=== PATIENT | female | born 1960 | race Caucasian/White ===

== ENCOUNTER 2019-05-26 20:06 | Inpatient (IN) ==
[2019-05-26] MEDS ORDERED: MOTRIN PO ONE (20:30)
--- NOTE | 2019-05-26 20:40 | PROVIDER DOCUMENTATION ---
HPI-Fever - General Chief Complaint: Fever Stated Complaint: B/P 246/149 HR 119 Time Seen by Provider: 05/26/19 20:34 Source: patient Allergies/Adverse Reactions: Patient Allergies Allergy/AdvReac Type Severity Reaction Status Date / Time clindamycin Allergy Unknown Verified 05/26/19 20:29 - History of Present Illness-Fever Nature of Presenting Problem: 58 YOF WITH PMH OF BIPOLAR, SCHIZO-AFFECTIVE, HTN WAS BROUGHT TO THE ER FOR INCREASED BP AT HOME. SHE IS A POOR HISTORIAN BUT WAS ABLE TO REPORT VOMITING X 2 TODAY BUT DENIES ALL PAIN. MOTHER REPORTS SHE HAS FREQUENT UTI'S. Fever Severity/Quality: reports: greater than 100.5 F Onset/Duration: reports: just prior to arrival Timing: reports: still present Severity: reports: moderate Context: reports: none Recent Illness?: reports: none Cognitive Baseline: alert but disoriented (BASELINE PER FAMILY) Modifying Factors: improves with: nothing Associated Symptoms: reports: denies symptoms Similar Symptoms Previously?: No Recently seen or treated by another doctor?: No - Glascow Coma Score Best Eye Response ([place]): (4) open spontaneously Best Verbal Response ([place]): (5) oriented Best Motor Response ([place]): (6) obeys commands Review of Systems - Adult - REVIEW OF SYSTEMS - ADULT Constitutional: reports: fever. denies: no symptoms reported, see HPI, chills, fatique, night sweats, weight gain, weight loss, other Eyes: reports: no symptoms reported. denies: see HPI, discharge, dry eyes, decreased vision, blurred vision, double vision, eye pain, redness, other Ears, Nose, Mouth & Throat: reports: no symptoms reported. denies: see HPI, ear discharge, ear pain, hearing loss, tinnitus, epistaxis, sinus problem, nose pain, loose teeth, mouth/dental pain, mouth swelling, hoarseness, throat pain, throat swelling, other Cardiovascular: reports: no symptoms reported. denies: see HPI, chest pain, edema, heart murmur, irregular heart rate, orthopnea, palpitations, poor circu lation, PND, syncope, other Respiratory: reports: no symptoms reported. denies: see HPI, chronic cough, cough, dyspnea on exertion, excessive sputum production, hemoptysis, pleurisy, shortness of breath, wheezing, other Gastrointestinal: reports: nausea, vomiting. denies: no symptoms reported, see HPI, abdominal pain, hematemesis, constipation, diarrhea, difficulty swallowing, frequent heartburn, poor appetite, rectal bleeding, other Genitourinary: reports: no symptoms reported. denies: see HPI, dysuria, discharge, frequency, flank pain, frequent UTI's, hematuria, hesitency, incontinence, urinary retention, urgency, other Musculoskeletal: reports: no symptoms reported. denies: see HPI, bone pain, back pain, frequent leg cramps, joint pain, joint swelling, muscle aches, muscle weakness, neck pain, other Integumentary: reports: no symptoms reported. denies: see HPI, hives, hair loss, itching, mole changes, nail changes, rash, skin sores/ulcer, skin thickening, other Neurological: reports: no symptoms reported. denies: see HPI, ataxia, dizziness/vertigo, headache/migraines, loss of balance, numbness, paresthesia, seizure, slurred speech, syncope, tremors, other Psychiatric: reports: no symptoms reported. denies: see HPI, anxiety, anti- depressant use, alcohol/drug dependence, depression, emotional problems, insomnia, panic attacks, suicidal thoughts, other Endocrine: reports: no symptoms reported. denies: see HPI, change in skin pigment, excessive sweating, goiter, cold intolerance, heat intolerance, increased hunger, increased thirst, polyuria, other Hematologic/Lymphatic: reports: no symptoms reported. denies: see HPI, blood clots, easy bruising, low blood count, lymphedema, prolonged bleeding, swollen lymph nodes, transfusions, other Allergic/Immunologic: reports: no symptoms reported. denies: see HPI, allergic reactions, allergic rhinitis, asthma, eczema, food allergy, frequent infections, hay fever, hives, positive PPD, urticaria, other Past History - Adult - PAST MEDICAL HISTORY-ADULT Review of Records: reports: Nursing Assessment Review, Social history reviewed & non-contributory. Physical Exam-General - PHYSICAL EXAM-ADULT Initial Vital Signs Reviewed: Yes - CONSTITUTIONAL General Appearance: appears well, alert, no apparent distress - EYES Eyes: PERRL/EOMI - HEAD, EARS, NOSE, MOUTH & THROAT HENMT: normocephalic/atraumatic, moist mucous membranes, normal ENT inspection - NECK Neck: non-tender, full range of motion, supple - RESPIRATORY Respiratory: chest non-tender, lungs clear, normal breath sounds - CARDIOVASCULAR Cardiovascular: normal peripheral pulses, tachycardia - GASTROINTESTINAL (ABDOMEN) Abdominal Exam: normal bowel sounds, non tender, soft - LYMPHATIC Lymphatic: no adenopathy, axilla node tender - MUSCULOSKELETAL Back Exam: normal inspection, no CVA tenderness, no vertebral tenderness Extremity: normal range of motion, non-tender, normal gait, normal inspection - SKIN Integumentary: normal color, normal turgor, warm/dry - NEUROLOGIC Neurologic: grossly normal - PSYCHIATRIC Psych/Mental Status: normal mood/affect, oriented x 3 Progress - PLAN OF CARE/RESULTS Progress/Plan/Lab Results: Vital Signs - 8 hr 05/26/19 20:20 05/26/19 21:39 Temperature 101.9 F H 98.8 F Pulse Rate 101 H 88 Respiratory Rate 18 23 Blood Pressure 149/94 154/96 O2 Sat by Pulse Oximetry 92 L 96 Laboratory Results - last 24 hr 05/26/19 05/26/19 05/26/19 20:45 20:45 20:45 WBC 16.54 H RBC 5.16 Hgb 13.7 Hct 41.7 MCV 80.8 L MCH 26.6 L MCHC 32.9 L RDW Std Deviation 13.8 Plt Count 290 MPV 9.7 Immature Gran % (Auto) 0.2 Neut % (Auto) 87.3 H Lymph % (Auto) 7.6 L [place] % (Auto) 4.7 Eos % (Auto) 0.1 Baso % (Auto) 0.1 Immature Gran # (Auto) 0.04 Neut # (Auto) 14.43 H Lymph # (Auto) 1.26 [place] # (Auto) 0.78 H Eos # (Auto) 0.01 Baso # (Auto) 0.02 Segmented Neutrophils 83 H Band Neutrophils 8 H Lymphocytes 7 L Monocytes 2 Large Platelets 1+ Stomatocytes OCCASIONAL PT 13.8 INR 1.01 PTT (Actin FS) 25.4 Sodium 132 L Potassium 4.1 Chloride 96 L Carbon Dioxide 23 L Anion Gap 13 BUN 13 Creatinine 0.8 Estimated GFR/1.73 m2 > 60 BUN/Creatinine Ratio 16 Glucose 159 H Calculated Osmolality 268 Calcium 9.6 Magnesium 1.4 L Total Bilirubin 0.90 AST 25 ALT 34 Alkaline Phosphatase 122 H Creatine Kinase 38 Troponin T Total Protein 7.7 Albumin 4.7 Globulin 3.0 Albumin/Globulin Ratio 2.0 Plasma Lactate Urine Source Urine Color Urine Clarity Urine pH Ur Specific [place] Urine Protein Urine Ketones Urine Blood Urine Nitrite Urine Bilirubin Urine Urobilinogen Urine WBC Urine Glucose Influenza A (Rapid) Influenza B (Rapid) 05/26/19 05/26/19 05/26/19 20:45 20:45 20:48 WBC RBC Hgb Hct MCV MCH MCHC RDW Std Deviation Plt Count MPV Immature Gran % (Auto) Neut % (Auto) Lymph % (Auto) [place] % (Auto) Eos % (Auto) Baso % (Auto) Immature Gran # (Auto) Neut # (Auto) Lymph # (Auto) [place] # (Auto) Eos # (Auto) Baso # (Auto) Segmented Neutrophils Band Neutrophils Lymphocytes Monocytes Large Platelets Stomatocytes PT INR PTT (Actin FS) Sodium Potassium Chloride Carbon Dioxide Anion Gap BUN Creatinine Estimated GFR/1.73 m2 BUN/Creatinine Ratio Glucose Calculated Osmolality Calcium Magnesium Total Bilirubin AST ALT Alkaline Phosphatase Creatine Kinase Troponin T < 0.010 Total Protein Albumin Globulin Albumin/Globulin Ratio Plasma Lactate 1.4 Urine Source Urine Color Urine Clarity Urine pH Ur Specific [place] Urine Protein Urine Ketones Urine Blood Urine Nitrite Urine Bilirubin Urine Urobilinogen Urine WBC Urine Glucose Influenza A (Rapid) NEGATIVE Influenza B (Rapid) NEGATIVE 05/26/19 21:50 WBC RBC Hgb Hct MCV MCH MCHC RDW Std Deviation Plt Count MPV Immature Gran % (Auto) Neut % (Auto) Lymph % (Auto) [place] % (Auto) Eos % (Auto) Baso % (Auto) Immature Gran # (Auto) Neut # (Auto) Lymph # (Auto) [place] # (Auto) Eos # (Auto) Baso # (Auto) Segmented Neutrophils Band Neutrophils Lymphocytes Monocytes Large Platelets Stomatocytes PT INR PTT (Actin FS) Sodium Potassium Chloride Carbon Dioxide Anion Gap BUN Creatinine Estimated GFR/1.73 m2 BUN/Creatinine Ratio Glucose Calculated Osmolality Calcium Magnesium Total Bilirubin AST ALT Alkaline Phosphatase Creatine Kinase Troponin T Total Protein Albumin Globulin Albumin/Globulin Ratio Plasma Lactate Urine Source CLEAN CATCH Urine Color DARK YELLOW Urine Clarity SLIGHTLY CLOUDY A Urine pH 6.5 Ur Specific [place] 1.020 Urine Protein 1+(30 mg/dL) A Urine Ketones 1+(Small) A Urine Blood 3+ A Urine Nitrite NEGATIVE Urine Bilirubin 2+ A Urine Urobilinogen 1 Urine WBC 2+ A Urine Glucose TRACE(50 mg/dL) A Influenza A (Rapid) Influenza B (Rapid) Orders Category Date Time Status Cardiac Monitoring DIRECTED Care 05/26/19 20:34 Active IV Insertion ORDERED Care 05/26/19 20:34 Completed Notify MD of + Sepsis Screen NOW Care 05/26/19 20:34 Active Notify Physician As Ordered Care 05/26/19 20:34 Active CHEST-1 VIEW [RAD] Stat Exams 05/26/19 20:34 Completed cxr [CHEST-2 VIEWS] [RAD] Stat Exams 05/26/19 22:04 Taken BLOOD CULTURE [BLDCUL] Stat Lab 05/26/19 20:52 Results CBC WITH DIFF [HEME] Stat Lab 05/26/19 20:45 Completed CK PROFILE [SP CHEM] Stat Lab 05/26/19 20:45 Completed COMPREHENSIVE METABOLIC PANEL [CHEM] Stat Lab 05/26/19 20:45 Completed Flu [INFLUENZA SCREEN PL] Stat Lab 05/26/19 20:48 Completed LACTATE, PLASMA [CHEM] Lab 05/26/19 23:45 Uncollected LACTATE, PLASMA [CHEM] Lab 05/27/19 02:45 Uncollected LACTATE, PLASMA [CHEM] Q3H Lab 05/26/19 20:45 Completed MAGNESIUM [CHEM] Stat Lab 05/26/19 20:45 Completed PROTIME WITH INR [COAG] Stat Lab 05/26/19 20:45 Completed PTT [COAG] Stat Lab 05/26/19 20:45 Completed TROPONIN T Stat Lab 05/26/19 20:[address] W/POSS RFLX CULT [URINALYSIS] Stat Lab 05/26/19 21:50 Results 0.9% Sodium Chloride Inj [Ns] 1,000 ml Med 05/26/19 21:12 Discontinued IV 999 mls/hr CefTRIAXONE [Rocephin] 2 gm Med 05/26/19 22:21 Active 0.9% Sodium Chloride Inj [Ns] 50 ml IV NOW Ibuprofen [Motrin] Med 05/26/19 20:30 Discontinued 800 mg PO NOW ONE Oxygen Device Stat Oth 05/26/19 20:34 Active Result Diagrams: 05/26/19 20:45 05/26/19 20:45 - EKG 1 Time of EKG reading by physician:: 21:11 EKG Read and Signed by:: Corwin Shearer EKG Interpretation (*Must complete 3 of following elements*): Abnormal Rate: 93 Rhythm: NSR [place]: normal QRS: RBB AL Interval: normal ST Wave: non-specific ST changes Prior EKG Comparison: no prior EKG - XRAY 1 XRAY Study: Chest Impression: See EMR Report (CHEST-1 VIEW - 05/26/2019 INDICATION: SEPSIS W/U COMPARISON: None FINDINGS: Lung volumes are critically low. No infiltrates or edema. Heart size is normal. IMPRESSION: Critically low lung volumes. Electronically signed by Billy Garibay 05/26/2019 9:43 PM) Departure - Departure Date of Disposition Decision: 05/26/19 Time of Disposition Decision: 22:27 DIAGNOSIS: UTI (urinary tract infection) Disposition: ADMITTED INPATIENT 09 Certified Medical Emergency: Emergent Condition: Stable Referrals and Follow-Ups: Michaela Pérez MD [Primary Care Provider] - - Critical Care Note This patient required my direct & personal management of CC.: No Attestation - Physician/ VASQUEZ Attestation Patient care was provided by Advanced Practice Provider:: Yes Advanced Practice Provider:: Leni Palomares Advanced Practice Provider documentation review:: The Mid-level provider documentation, treatment plan and medical decision making was reviewed by the physician who agrees with all treatment and medical decision making by the MLP. The physician spent face to face time with patient:: No Advanced Practice Provider documentation review:: Supervising physician onsite and consulted in the evaluation and care of this patient. The physician did not have a face to face encounter with the patient.
[2019-05-26 21:02] LABS: BASO# 0.02 X1000 (0.0-0.2); BASO% 0.1 % (0.0-0.8); EOS# 0.01 X1000 (0.0-0.7); EOS% 0.1 % (0.0-10.0); HEMATOCRIT 41.7 % (37.0-47.0); HEMOGLOBIN 13.7 g/dL (12.0-16.0); IMM GRAN# 0.04 X1000 (0.0-0.04); IMM GRAN% 0.2 % (0.0-0.5); LYMPH# 1.26 X1000 (1.2-3.4); LYMPH% 7.6 % (20.5-51.1); MCH 26.6 PG (27-31); MCHC 32.9 g/dL (33-37); MCV 80.8 FL (81-99); MONO# 0.78 X1000 (0.11-0.59); MONO% 4.7 % (1.7-9.3); MPV 9.7 FL (7.4-10.4); NEUT# 14.43 X1000 (1.4-6.5); NEUT% 87.3 % (42.2-75.2); PLT 290 X1000 (130-400); RBC 5.16 XMIL (4.2-5.4); RDW 13.8 % (11.5-14.5); WBC 16.54 X1000 (4.8-10.8)
[2019-05-26 21:09] LABS: INR 1.01; PROTIME 13.8 Seconds (11.0-16.0)
[2019-05-26 21:10] LABS: PTT 25.4 Seconds (22.3-41.8)
[2019-05-26 21:12] LABS: AGAP 13; ALBUMIN 4.7 g/dL (3.5-5.0); ALKALINE PHOSPHATASE 122 U/L (32-104); BUN 13 mg/dL (8-22); CALCIUM 9.6 mg/dL (8.8-10.2); CHLORIDE 96 mmol/L (98-107); CK PROFILE 38 U/L (24-173); COSMO 268; CREATININE 0.8 mg/dL (0.5-0.9); ESTIMATED GFR > 60; GLUCOSE 159 mg/dL (70-104); GOT 25 U/L (10-30); GPT 34 U/L (10-36); MAGNESIUM 1.4 mg/dL (1.5-2.7); POTASSIUM 4.1 mmol/L (3.5-5.1); SODIUM 132 mmol/L (136-145); TCO2 23 mmol/L (25-35); TOTAL PROTEIN 7.7 g/dL (6.3-8.3)
[2019-05-26] MEDS ORDERED: NS 1,000 ML IV ONE ×2 (21:12→22:27)
[2019-05-26 21:21] LABS: INFLUENZA A NEGATIVE (NEGATIVE); INFLUENZA B NEGATIVE (NEGATIVE)
[2019-05-26 21:25] LABS: BANDS 8 % (0-1); LYMPHS 7 % (21-51); MONO 2 % (1-9); SEGS 83 % (42-75)
[2019-05-26 21:26] LABS: LARGE PLATELETS 1+; STOMATOCYTES OCCASIONAL
--- NOTE | 2019-05-26 21:45 | Diag Imaging Result Doc PS360 ---
CHEST-1 VIEW - 05/26/2019 INDICATION: SEPSIS W/U COMPARISON: None FINDINGS: Lung volumes are critically low. No infiltrates or edema. Heart size is normal. IMPRESSION: Critically low lung volumes. Electronically signed by Billy Garibay 05/26/2019 9:43 PM
[2019-05-26 22:17] LABS: BILIRUBIN URINE 2+ (NEGATIVE); KETONE URINE 1+(Small) mg/dL (NEGATIVE); URINE SOURCE CLEAN CATCH
[2019-05-26] MEDS ORDERED: ROCEPHIN 2 GM in NS 50 ML IV ONE (22:21)
[2019-05-26 22:26] LABS: URINE BACTERIA 3+ /HFP; URINE EPITHELIAL CELLS <10 /HPF (<10); URINE RBC 20-40 /HPF (<10); URINE WBC 20-40 /HPF (<10)
[2019-05-26] MEDS ORDERED: NS 50 ML ONE (22:46)
[2019-05-26] MEDS ORDERED: ROCEPHIN ONE (22:46)
--- NOTE | 2019-05-27 00:31 | EKG Report ---
Test Performed on : 05/26/2019 9:10:00 PM Test Reason : ORDER Blood Pressure : / mmHG Vent. Rate : 093 BPM Atrial Rate : 093 BPM P-R Int : 154 ms QRS Dur : 136 ms QT Int : 394 ms P-R-T Axes : -21 018 -37 degrees QTc Int : 489 ms Normal sinus rhythm. Right bundle branch block Inferior infarct , age undetermined T wave abnormality, consider lateral ischemia Abnormal ECG No previous ECGs available Unconfirmed Result
[2019-05-27 06:35] LABS: BLOOD URINE 3+ (NEGATIVE); NITRITE URINE NEGATIVE (NEGATIVE); PH URINE 6.5; PROTEIN URINE 1+(30 mg/dL) mg/dL (NEGATIVE); UROBILINOGEN URINE 1 mg/dL
[2019-05-27 06:36] LABS: CLARITY SL. CLOUDY (CLEAR); COLOR YELLOW; LEUKOCYTES URINE 2+ (NEGATIVE)
--- NOTE | 2019-05-27 07:35 | Diag Imaging Result Doc PS360 ---
EXAM: CHEST-2 VIEWS HISTORY: REPEAT- DUE TO LOW VOLUMES TECHNIQUE: Chest two views COMPARISON: Films taken earlier FINDINGS: Poor inspiratory effort. The heart is not enlarged. The vessels are not distended. There is atelectasis in the left base. No pleural effusions. IMPRESSION: Poor inspiratory effort with left basilar atelectasis. Electronically signed by Fazal Albert 05/27/2019 7:32 AM
[2019-05-27] MEDS ORDERED: ZOFRAN IV PRN (08:12)
[2019-05-27] MEDS ORDERED: TYLENOL PO PRN (08:37)
[2019-05-27] MEDS ORDERED: MAGNESIUM SULFATE 2 GM/S.W.I. 2 GM/50 ML IVPB IV ONE (08:38)
--- NOTE | 2019-05-27 09:04 | HISTORY AND PHYSICAL ---
PRIMARY CARE PHYSICIAN: Dr. Michaela Pérez. CHIEF COMPLAINT: Increased blood pressure at home with a headache, also vomited x2 yesterday, and had a subjective fever of 101.9. HISTORY OF PRESENTING ILLNESS: This is a 58-year-old, female who presents to [facility] with complaints of an elevated blood pressure and heart rate. Stated that her blood pressure at home was 246/149 with a heart rate of 119. When she arrived to the emergency room, her blood pressure was 149/94. She was noted to have a temperature of 101.9 degrees and saturating 92% on room air. Her workup showed a white blood cell count of 16.54, a sodium of 132, with a chloride of 96. Her magnesium was 1.4. Her plasma lactate was 1.4. Her urinalysis showed negative nitrites, 2+ white blood cells, 3+ bacteria. Chest x-ray showed initially critically low lung volumes. It was repeated approximately 2 hours later to see if they could get a better picture and that showed poor inspiratory effort with left basilar atelectasis. The patient states she vomited x2 yesterday and is currently nauseated right now but denies any burning or hurting with urination. No CVA tenderness was noted. She will be admitted to the medical unit for further evaluation and treatment. PAST MEDICAL HISTORY: Bipolar, schizoaffective disorder, hypertension, frequent UTIs, diabetes type 2, hyperlipidemia, vitamin D deficiency, and hypothyroidism. PAST SURGICAL HISTORY: None. FAMILY HISTORY: Heart disease and hypothyroidism. SOCIAL HISTORY: She currently lives with mom. Denies any tobacco use, alcohol use, or illicit drug use. ALLERGIES: Clindamycin. HOME MEDICATIONS: A current list will be obtained and reconciled, reviewed, and restarted as appropriate. We will place an order for nursing to update and confirm home medications. LABORATORY DATA: Showed a white blood cell count of 16.54, hemoglobin 13.7, hematocrit 41.7, platelets 290,000. PT and INR of 13.8 and 1.01. Sodium 132, potassium 4.1, chloride 96, CO2 of 23, BUN of 13, creatinine 0.8, glucose 159. Magnesium was 1.4. Cardiac enzymes were negative. Plasma lactate of 1.4 on arrival, three hours later of 0.9, and then three hours after that of 1.1. Urinalysis showed 3+ blood, negative nitrites, 2+ white blood cells, 3+ bacteria. Influenza A and B were both negative. Chest x-ray showed critically low lung volumes. It was repeated 2 hours later to see if they could get a better picture and that still showed poor inspiratory effort with left basilar atelectasis. REVIEW OF SYSTEMS: She was positive for a subjective fever. Denied any chills, blurred vision, dizziness. She was positive for a headache. She denied any chest pain, coughing, or shortness of breath. She denied any abdominal pain. She did have vomiting x2 yesterday and is currently nauseated. Denied any burning or hurting with urination and no CVA tenderness. PHYSICAL EXAMINATION: VITAL SIGNS: On arrival, she had a temperature of 101.9 degrees, pulse 101, respirations 18, blood pressure 149/94, saturating 92% on room air. Currently, her temperature is 100.6 degrees, heart rate 121, blood pressure 159/90, saturating 100% on room air. GENERAL: This is a 58-year-old, female who is sitting on the side of the bed, eating some Jell-O, and answering questions appropriately. Her mom is also at the bedside to help answer questions. HEENT: Normocephalic, atraumatic. Normal ENT inspection. Oropharynx and nares are clear. Eyes: Pupils are equal, round, reactive to light and accommodation. Extraocular movements are intact. NECK: Normal inspection. Normal range of motion. LUNGS: Clear to auscultation bilaterally with equal lung expansion and chest wall movement. HEART: With regular rate and rhythm. No murmurs, rubs, or gallops. ABDOMEN: Soft, nontender, nondistended. Bowel sounds are present x4 quadrants. No CVA tenderness was elicited. MUSCULOSKELETAL: She has 5/5 strength x4 extremities. Moves all extremities well. NEUROLOGICAL: The cranial nerves 2-12 appear grossly intact. ASSESSMENT: 1. Urinary tract infection. 2. Leukocytosis secondary to #1. 3. Hyponatremia. 4. Hypomagnesemia. 5. Hypothyroidism. 6. Diabetes type 2. 7. Hypertension. PLAN: She was admitted to the medical unit at [place]. Placed on a diabetic diet. Blood cultures and urine culture are both pending. We will place her on normal saline at 75 mL an hour, Rocephin 1 g IV q.24. Give her Tylenol 650 p.o. q.4 hours p.r.n. for fever. We will give her Zofran 4 mg IV q.4 hours p.r.n. for nausea or vomiting. We will give her magnesium sulfate 2 g IV x1. Recheck a CBC, BMP, and a magnesium level in the a.m. We are also checking a TSH and a free T4 as the mom stated she has had this history and has been on Synthroid but is out of medication currently and was unsure of how long she had been out of her medication so we will check levels and also verify her home medications and restart those as appropriate. Dictated by BRINDA Schaffer for Jourdan Arias MD Addendum: Patient seen and examined by myself. Agree with BRINDA note. It reflects my assessment and plan. Patient is being admitted to hospital for UTI and leucocytosis. Will start IV antibiotics in this case Ceftriaxone and will see what urine culture shows. Will check CBC daily cc: BRINDA Schaffer MD Martha Read [facility]
[2019-05-27] MEDS: NS 1,000 ML IV SCH (09:05)
[2019-05-27 09:38] LABS: FREE T4 1.02 ng/dL (0.93-1.70); TSH 2.76 uIUmL (0.27-4.20)
[2019-05-27] MEDS: HUMALOG (PARKWAY) SUBQ SCH ×3 (12:19→20:47)
[2019-05-27 13:08] LABS: BASO# 0.02 X1000 (0.0-0.2); BASO% 0.2 % (0.0-0.8); HEMATOCRIT 38.3 % (37.0-47.0); HEMOGLOBIN 12.6 g/dL (12.0-16.0); IMM GRAN# 0.05 X1000 (0.0-0.04); IMM GRAN% 0.4 % (0.0-0.5); LYMPH# 1.25 X1000 (1.2-3.4); LYMPH% 9.6 % (20.5-51.1); MCH 26.6 PG (27-31); MCHC 32.9 g/dL (33-37); MONO# 0.45 X1000 (0.11-0.59); MONO% 3.5 % (1.7-9.3); MPV 9.3 FL (7.4-10.4); NEUT# 11.26 X1000 (1.4-6.5); NEUT% 86.3 % (42.2-75.2); PLT 244 X1000 (130-400); RBC 4.73 XMIL (4.2-5.4); RDW 13.8 % (11.5-14.5); WBC 13.03 X1000 (4.8-10.8)
[2019-05-27 13:16] LABS: AGAP 11; BUN 12 mg/dL (8-22); CALCIUM 8.6 mg/dL (8.8-10.2); CHLORIDE 103 mmol/L (98-107); COSMO 276; CREATININE 0.8 mg/dL (0.5-0.9); ESTIMATED GFR > 60; GLUCOSE 239 mg/dL (70-104); POTASSIUM 3.6 mmol/L (3.5-5.1); SODIUM 134 mmol/L (136-145); TCO2 20 mmol/L (25-35)
[2019-05-27 13:55] LABS: ANISOCYTOSIS 1+; BANDS 9 % (0-1); LYMPHS 10 % (21-51); MONO 2 % (1-9); SEGS 79 % (42-75)
[2019-05-27] MEDS ORDERED: LOMOTIL PO PRN (21:36)
[2019-05-27] MEDS ORDERED: LOMOTIL PO ONE (21:36)
[2019-05-27] MEDS ORDERED: ROCEPHIN 1 GM in NS 50 ML IV SCH (23:00)
[2019-05-28] MEDS: NS 1,000 ML IV SCH (03:24)
[2019-05-28 05:49] VITALS: BP 155/92
[2019-05-28] MEDS: HUMALOG (PARKWAY) SUBQ SCH (06:00)
[2019-05-28 06:42] LABS: HEMATOCRIT 36.3 % (37.0-47.0); HEMOGLOBIN 11.7 g/dL (12.0-16.0); MCHC 32.2 g/dL (33-37); MCV 80.7 FL (81-99); RDW 13.9 % (11.5-14.5); WBC 7.87 X1000 (4.8-10.8)
[2019-05-28 06:43] LABS: BASO# 0.01 X1000 (0.0-0.2); BASO% 0.1 % (0.0-0.8); IMM GRAN# 0.01 X1000 (0.0-0.04); IMM GRAN% 0.1 % (0.0-0.5); LYMPH# 1.21 X1000 (1.2-3.4); LYMPH% 15.4 % (20.5-51.1); MONO# 0.26 X1000 (0.11-0.59); MONO% 3.3 % (1.7-9.3); MPV 9.7 FL (7.4-10.4); NEUT# 6.38 X1000 (1.4-6.5); NEUT% 81.1 % (42.2-75.2); PLT 214 X1000 (130-400)
[2019-05-28 06:56] LABS: AGAP 9; BUN 7 mg/dL (8-22); CALCIUM 8.4 mg/dL (8.8-10.2); CHLORIDE 104 mmol/L (98-107); COSMO 270; CREATININE 0.5 mg/dL (0.5-0.9); ESTIMATED GFR > 60; GLUCOSE 141 mg/dL (70-104); MAGNESIUM 1.7 mg/dL (1.5-2.7); POTASSIUM 3.5 mmol/L (3.5-5.1); SODIUM 135 mmol/L (136-145); TCO2 22 mmol/L (25-35)
[2019-05-28] MEDS ORDERED: CULTURELLE PO SCH (09:00)
--- NOTE | 2019-05-28 12:48 | DISCHARGE SUMMARY ---
ADMISSION DATE: 05/28/2019 DISCHARGE DATE: 05/28/2019 PRIMARY CARE PHYSICIAN: Dr. Michaela éPrez. ADMISSION DIAGNOSES: 1. Urinary tract infection. 2. Leukocytosis secondary to #1. 3. Hyponatremia. 4. Hypomagnesemia. 5. Hypothyroidism. 6. Diabetes type 2. 7. Hypertension. DISCHARGE DIAGNOSES: 1. Urinary tract infection with urine culture showing mixed teetee. 2. Leukocytosis, resolved. 3. Hyponatremia, resolved. 4. Hypomagnesemia, resolved. 5. Hypothyroidism. 6. Diabetes type 2. 7. Hypertension. SUMMARY OF FINDINGS: This is a 58-year-old female who presented to the ER initially with complaints of an elevated blood pressure. Stated that her blood pressure at home was 246/149 with a heart rate of 119. Blood pressure on arrival was 149/94. She was noted to have a temperature of 101.9 degrees, Her white blood cell count was 16.54. Her sodium was 132. Magnesium 1.4. Urinalysis showed negative nitrites, 2+ white blood cells, 3+ bacteria. Her urine culture has grown out mixed teetee. She was admitted, placed on IV antibiotics, IV hydration. We gave her magnesium sulfate 2 g IV x1 and her level has returned to normal now. Her white blood cell count is back to normal at 7.87 today so it is felt that she can safely be discharged home. DISCHARGE MEDICATIONS: Include Culturelle 1 p.o. b.i.d., aripiprazole 5 mg p.o. daily, cefdinir 300 mg p.o. b.i.d. (#20 with no refills), vitamin D2 50,000 units 1 capsule as directed, lisinopril 20 mg p.o. daily, metoprolol 50 mg p.o. daily, and simvastatin 20 mg p.o. at bedtime. FOLLOWUP: She will need to follow up with her primary care physician in the next 1 to 2 weeks. Call the office for an appointment. All discharge instructions have been reviewed with the patient and she verbalizes understanding. TIME SPENT: This is a 33 minute discharge. Dictated by BRINDA Schaffer for Jourdan Arias MD Addendum: Patient seen and examined by myself. Agree with BRINDA note. It reflects my assessment and plan. Patient is being discharged in stable condition to home. cc: BRINDA Lorenzo MD MTDD
== END 2019-05-28 11:24 | disposition home or self-care (01) | DRG 872 ==
LOC: P.MEDSURG 20:06 → P.ED 20:06 → SUATTDRO 23:46
PROVIDERS: ATTEND Internal Medicine
CPT/HCPCS: 71010; 71020; 71045; 71046; 80048; 80053; 81001; 82550; 82948; 83605; 83735; 84439; 84443; 84484; 85025; 85610; 85730; 87040; 87088; 87275; 87276; 87324; 87449; 87804; 93005; 94761; 96361; 96365; 99285; A9270; J0696; J1815; J2405; J3475; J7030; XXXXX